=== PATIENT | female | born 1945 | race Caucasian/White ===

== ENCOUNTER 2017-04-03 17:22 | Inpatient (IN) ==
[2017-04-03] MEDS ORDERED: CYCLOBENZAPRINE 10 MG TABLET ONE (18:18)
[2017-04-03] MEDS: CYCLOBENZAPRINE 10 MG TABLET PO STA ×2 (18:23→18:34)
[2017-04-03] MEDS ORDERED: ONDANSETRON 4 MG/2 ML VIAL IM STA (18:33)
[2017-04-03] MEDS ORDERED: MORPHINE 2 MG/1 ML SYRINGE IM STA (18:35)
[2017-04-03] MEDS ORDERED: MORPHINE 2 MG/1 ML SYRINGE IV STA ×2 (18:37→18:51)
[2017-04-03 18:38] LABS: Basophils % 0.5 % (0.0-0.8); Eosinophils % 0.5 % (0.00-10.9); Hematocrit 37.9 VOL% (35.7-47.0); Hemoglobin 13.3 GM/DL (12.0-16.0); Immature Granulocytes % 0.2 %; Immature Granulocytes Absolute 0.01 #; Lymphocytes # 1.4 10*3/uL (1.4-4.0); Lymphocytes % 22.3 % (21.3-54.2); Mean Corpuscular HGB Conc 35.1 GM/DL (32-36); Mean Corpuscular Hemoglobin 31 PG (27-34); Mean Corpuscular Volume 89.2 FL (87-102); Mean Platelet Volume 10.8 FL (9.6-12.0); Monocytes # 0.2 10*3/uL (0.11-0.8); Monocytes % 2.9 % (1.7-12.7); Neutrophils # 4.6 10*3/uL (1.4-7.4); Neutrophils % 73.6 % (38.7-73.9); Platelet Count 139 T/CUMM (130-400); Red Blood Count 4.25 MC/CUMM (3.8-5.5); Red Cell Distribution Width 12.1 % (9.3-17.3); White Blood Count 6.2 T/CUMM (4-12)
[2017-04-03] MEDS ORDERED: ONDANSETRON 4 MG/2 ML VIAL IV STA (18:38)
[2017-04-03] MEDS ORDERED: ONDANSETRON 4 MG/2 ML VIAL ONE (18:39)
[2017-04-03] MEDS ORDERED: MORPHINE 2 MG/1 ML SYRINGE ONE (18:39)
[2017-04-03 18:50] LABS: Apearance,Urine Slightly Hazy (Clear); Bilirubin,Urine Negative (Negative); Blood, Urine Negative (Negative); Glucose,Urine (UA) Negative (Negative); Ketones,Urine 20 mg/dL (Negative); Nitrite,Urine Negative (Negative); Protein,Urine Negative; RBC,Urine <1 /HPF (0-4); Urine Color Amber (Yellow); Urine Urobilinogen < 2.0 EU/DL (0.2-1.0); WBC,Urine 1 /HPF (0-6)
[2017-04-03 18:54] LABS: Albumin 3.7 G/DL (3.4-5.0); Bilirubin,Total 0.6 MG/DL (0.2-1.0); Calcium 9.2 MG/DL (8.5-10.1); Osmolality,Calculated 280.4 MOS/KG (273-304); Potassium 3.9 MMOL/L (3.5-5.1); Total Protein 6.7 G/DL (6.4-8.3)
[2017-04-03] MEDS ORDERED: DICYCLOMINE 20 MG/2 ML AMP IM ONE ×2 (20:27→21:05)
[2017-04-03] MEDS ORDERED: SODIUM CHLORIDE 0.9% 500 ML IV STA (21:02)
[2017-04-03] MEDS ORDERED: PROMETHAZINE 25 MG/1 ML VIAL IM ONE (21:22)
[2017-04-03] MEDS ORDERED: PROMETHAZINE 25 MG/1 ML VIAL IM PRN (22:54)
[2017-04-03] MEDS ORDERED: POLYETHYLENE GLYCOL POWDER 17 GM PACK PO SCH (22:54)
[2017-04-03] MEDS ORDERED: MORPHINE 2 MG/1 ML SYRINGE IV PRN (22:54)
[2017-04-03] MEDS ORDERED: ZALEPLON 5 MG CAPSULE PO PRN (22:54)
[2017-04-03] MEDS ORDERED: ONDANSETRON 4 MG/2 ML VIAL IV PRN (22:54)
[2017-04-03] MEDS: ENOXAPARIN 40 MG/0.4 ML SYRINGE SUBCUT SCH (23:40)
[2017-04-03] MEDS: SODIUM CHLORIDE 0.9% 1,000 ML IV SCH (23:42)
[2017-04-04 06:43] LABS: Basophils % 0.3 % (0.0-0.8); Hematocrit 36.1 VOL% (35.7-47.0); Hemoglobin 12.6 GM/DL (12.0-16.0); Immature Granulocytes % 0.5 %; Immature Granulocytes Absolute 0.03 #; Lymphocytes # 1.5 10*3/uL (1.4-4.0); Lymphocytes % 24.1 % (21.3-54.2); Mean Corpuscular HGB Conc 34.9 GM/DL (32-36); Mean Corpuscular Hemoglobin 31 PG (27-34); Mean Corpuscular Volume 88.7 FL (87-102); Mean Platelet Volume 11.4 FL (9.6-12.0); Monocytes # 0.3 10*3/uL (0.11-0.8); Monocytes % 5.3 % (1.7-12.7); Neutrophils # 4.5 10*3/uL (1.4-7.4); Neutrophils % 69.8 % (38.7-73.9); Platelet Count 139 T/CUMM (130-400); Red Blood Count 4.07 MC/CUMM (3.8-5.5); Red Cell Distribution Width 12.2 % (9.3-17.3); White Blood Count 6.4 T/CUMM (4-12)
[2017-04-04 06:58] LABS: Free T4 (Free Thyroxine) 1.1 NG/DL (0.76-1.46); Risk Ratio 2.65; VLDL CHOLESTEROL 29.4 MG/DL
[2017-04-04 07:03] LABS: Calcium 8.5 MG/DL (8.5-10.1); Osmolality,Calculated 283.1 MOS/KG (273-304); Potassium 3.8 MMOL/L (3.5-5.1); Thyroid Stimulating Hormone 0.939 uIU/ml (0.358-3.74)
[2017-04-04] MEDS: LEVOTHYROXINE 50 MCG TABLET PO SCH (08:44)
[2017-04-04] MEDS: PANTOPRAZOLE 40 MG VIAL IV SCH (08:45)
[2017-04-04] MEDS: PRAVASTATIN 40 MG TABLET PO SCH (08:45)
[2017-04-04] MEDS: KETOROLAC 30 MG/1 ML VIAL IV PRN ×2 (08:45→21:05)
[2017-04-04] MEDS ORDERED: DOCUSATE SODIUM 100 MG CAPSULE PO SCH (09:00)
[2017-04-04] MEDS ORDERED: ALENDRONATE SODIUM PO SCH (09:00)
[2017-04-04] MEDS: BISACODYL 5 MG TABLET PO SCH ×2 (09:07→17:52)
[2017-04-04] MEDS: SODIUM CHLORIDE 0.9% 1,000 ML IV SCH (12:56)
[2017-04-04] MEDS ORDERED: POLYETHYLENE GLYCOL POWDER 255 GM BOTTLE PO ONE (18:00)
[2017-04-04] MEDS ORDERED: TRIAZOLAM 0.125 MG PO SCH (21:00)
[2017-04-04] MEDS ORDERED: MAGNESIUM CITRATE 300 ML BOTTLE PO ONE (21:00)
[2017-04-04] MEDS: ENOXAPARIN 40 MG/0.4 ML SYRINGE SUBCUT SCH (21:06)
[2017-04-05] MEDS: BISACODYL 5 MG TABLET PO SCH (00:52)
[2017-04-05] MEDS: SODIUM CHLORIDE 0.9% 1,000 ML IV SCH ×2 (04:10→17:15)
[2017-04-05] MEDS: PANTOPRAZOLE 40 MG VIAL IV SCH (09:45)
[2017-04-05] MEDS: LEVOTHYROXINE 50 MCG TABLET PO SCH (15:30)
[2017-04-05] MEDS: PRAVASTATIN 40 MG TABLET PO SCH (15:30)
[2017-04-05] MEDS: tiZANidine 4 MG TABLET PO PRN (15:45)
[2017-04-05] MEDS: ENOXAPARIN 40 MG/0.4 ML SYRINGE SUBCUT SCH (20:34)
[2017-04-05] MEDS ORDERED: SODIUM CHLORIDE 0.9% 250 ML IV ONE (23:05)
[2017-04-05 23:41] LABS: Hemoglobin 10.8 GM/DL (12.0-16.0)
[2017-04-06] MEDS: tiZANidine 4 MG TABLET PO PRN (05:19)
[2017-04-06] MEDS: SODIUM CHLORIDE 0.9% 1,000 ML IV SCH (05:19)
[2017-04-06 07:35] LABS: Hematocrit 31.4 VOL% (35.7-47.0); Hemoglobin 10.4 GM/DL (12.0-16.0)
[2017-04-06] MEDS: PRAVASTATIN 40 MG TABLET PO SCH (09:44)
[2017-04-06] MEDS: KETOROLAC 30 MG/1 ML VIAL IV PRN (09:44)
[2017-04-06] MEDS: PANTOPRAZOLE 40 MG VIAL IV SCH (09:44)
[2017-04-06] MEDS: LEVOTHYROXINE 50 MCG TABLET PO SCH (09:44)
[2017-04-06 18:15] VITALS: BP 102/44
== END 2017-04-06 17:20 | disposition home or self-care (01) | DRG 394 ==
LOC: EDBD → EDUNIT# → N.ED 17:22 → N.EDINP 21:27 → N.5E 22:52
PROC: COLONBX (2017-04-05 12:20)